=== PATIENT | male | born 1940 | race Caucasian/White ===

== ENCOUNTER → 2016-08-01 | Outpatient (REF) | payer MEDICARE, BC ==
[2016-08-01 13:43] LABS: ALBUMIN 3.9 GM/DL (3.2-5.2); ALBUMIN/GLOBULIN RATIO 1.22 (1.00-1.93); ALKALINE PHOSPHATASE 66 U/L (45-117); ALT/SGPT 33 U/L (12-78); ANION GAP 9 MEQ/L (8-16); AST/SGOT 16 U/L (15-37); BILIRUBIN,TOTAL 0.6 MG/DL (0.2-1.0); BLOOD UREA NITROGEN 15 MG/DL (7-18); CALCIUM LEVEL 8.9 MG/DL (8.8-10.2); CARBON DIOXIDE LEVEL 27 MEQ/L (21-32); CHLORIDE LEVEL 104 MEQ/L (98-107); CHOLESTEROL LEVEL 166 MG/DL (<200); GLOMERULAR FILTRATION RATE > 60.0 (>42); GLUCOSE, FASTING 149 MG/DL (83-110); POTASSIUM SERUM 4.3 MEQ/L (3.5-5.1); SODIUM LEVEL 140 MEQ/L (136-145); TOTAL PROTEIN 7.1 GM/DL (6.4-8.2); TRIGLYCERIDES LEVEL 158 MG/DL (<150)
== END ==
LOC: M SFHCPLAZ 12:37
PROVIDERS: ATTEND Nurse Practitioner Adult Health
DX: R73.01 Impaired fasting glucose (principal); E78.00 Pure hypercholesterolemia, unspecified
CPT/HCPCS: 36415; 80053; 80061; 82043; 83036; G0463

== ENCOUNTER → 2017-03-06 | Outpatient (REF) | payer MEDICARE, BC ==
[2017-03-06 12:47] LABS: MEAN CORPUSCULAR HGB CONC 34.2 g/dl (32.0-36.5); MEAN CORPUSCULAR VOLUME 93.5 fl (80.0-96.0); RED CELL DISTRIBUTION WIDTH 12.4 % (11.5-14.5); WHITE BLOOD COUNT 9.4 K/mm3 (4.0-10.0)
[2017-03-06 12:52] LABS: ALBUMIN 3.9 GM/DL (3.2-5.2); ALKALINE PHOSPHATASE 56 U/L (45-117); ALT/SGPT 29 U/L (12-78); ANION GAP 9 MEQ/L (8-16); AST/SGOT 13 U/L (15-37); BILIRUBIN,TOTAL 0.5 MG/DL (0.2-1.0); BLOOD UREA NITROGEN 20 MG/DL (7-18); CARBON DIOXIDE LEVEL 27 MEQ/L (21-32); CHLORIDE LEVEL 106 MEQ/L (98-107); CHOLESTEROL LEVEL 157 MG/DL (<200); GLOMERULAR FILTRATION RATE > 60.0 (>42); GLUCOSE, FASTING 116 MG/DL (83-110); POTASSIUM SERUM 4.6 MEQ/L (3.5-5.1); SODIUM LEVEL 142 MEQ/L (136-145); TOTAL PROTEIN 6.9 GM/DL (6.4-8.2); TRIGLYCERIDES LEVEL 138 MG/DL (<150)
== END ==
LOC: M SFHCPLAZ 08:57
PROVIDERS: ATTEND Nurse Practitioner Adult Health
DX: R73.01 Impaired fasting glucose (principal); E78.2 Mixed hyperlipidemia

== ENCOUNTER → 2017-03-28 | Outpatient (CLI) | payer MEDICARE, BC ==
[2017-03-29 14:16] LABS: PSA TOTAL 3.1 ng/mL (0.0-4.0)
== END ==
LOC: M WUC 08:03
PROVIDERS: ATTEND Urology
DX: N40.1 Benign prostatic hyperplasia with lower urinary tract symptoms (principal); R97.20 Elevated prostate specific antigen [PSA]

== ENCOUNTER → 2017-09-01 | Outpatient (REF) | payer MEDICARE, BC ==
[2017-09-01 12:19] LABS: ESTIMATED AVERAGE GLUCOSE 166 MG/DL (60-110); HEMOGLOBIN A1c 7.4 %
[2017-09-01 12:26] LABS: ALBUMIN 3.6 GM/DL (3.2-5.2); ALKALINE PHOSPHATASE 70 U/L (45-117); ALT/SGPT 18 U/L (12-78); ANION GAP 11 MEQ/L (8-16); AST/SGOT 11 U/L (7-37); BILIRUBIN,TOTAL 0.5 MG/DL (0.2-1.0); BLOOD UREA NITROGEN 19 MG/DL (7-18); CALCIUM LEVEL 9.6 MG/DL (8.8-10.2); CARBON DIOXIDE LEVEL 25 MEQ/L (21-32); CHLORIDE LEVEL 104 MEQ/L (98-107); CHOLESTEROL LEVEL 154 MG/DL (<200); CHOLESTEROL RISK RATIO 3.581 (<5); CREATININE FOR GFR 1.19 MG/DL (0.70-1.30); GLOMERULAR FILTRATION RATE > 60.0 (>42); GLUCOSE, FASTING 139 MG/DL (70-100); HDL CHOLESTEROL 43 MG/DL (>40); LDL CHOLESTEROL 74.4 MG/DL (<100); NON-HDL-C 111 MG/DL; SODIUM LEVEL 140 MEQ/L (136-145); TOTAL PROTEIN 7.2 GM/DL (6.4-8.2); TRIGLYCERIDES LEVEL 183 MG/DL (<150)
[2017-09-01 12:54] LABS: CREATININE, URINE 55.5 MG/DL; MALB URINE SIEMENS 24.8 MG/L; MAU/CREAT RATIO 44.6 MCG/MG (0.0-30.0)
== END ==
LOC: M SFHCPLAZ 08:21
DX: R73.01 Impaired fasting glucose (principal); E78.2 Mixed hyperlipidemia
CPT/HCPCS: 80053

== ENCOUNTER → 2017-11-13 | Outpatient (CLI) | payer MEDICARE, BC ==
[2017-11-13 18:04] LABS: PROSTATIC SPECIFIC AG MONITOR 2.61 NG/ML (< 4.0)
== END ==
LOC: M WUC 13:52
DX: R97.20 Elevated prostate specific antigen [PSA] (principal)
CPT/HCPCS: 84153

== ENCOUNTER → 2018-01-05 | Outpatient (CLI) | payer MEDICARE, BC ==
[~2018-01-05] MED LIST: E-Z-GAS II EFFERVESCENT PACKET (SODIUM BICARB./CITRIC ACID/SIMETHICONE) As Ordered; E-Z-HD 98% w/w 340GM SUSP BTL As Ordered; E-Z-PAQUE 96% w/w SUSP 176GM BTL As Ordered
== END ==
LOC: M RAD 07:14
DX: K22.4 Dyskinesia of esophagus (principal); J34.89 Other specified disorders of nose and nasal sinuses
CPT/HCPCS: 74241

== ENCOUNTER → 2018-02-09 | Outpatient (CLI) | payer MEDICARE, BC ==
[2018-02-09 13:07] LABS: HEMATOCRIT 44.8 % (42.0-52.0); HEMOGLOBIN 15.1 g/dl (13.5-17.5); MEAN CORPUSCULAR HEMOGLOBIN 31.3 pg (27.0-33.0); MEAN CORPUSCULAR HGB CONC 33.7 g/dl (32.0-36.5); MEAN CORPUSCULAR VOLUME 92.9 fl (80.0-96.0); PLATELET COUNT, AUTOMATED 299 10^3/uL (150-450); RED BLOOD COUNT 4.82 10^6/uL (4.30-6.10); RED CELL DISTRIBUTION WIDTH 13.2 % (11.5-14.5); WHITE BLOOD COUNT 9.4 10^3/uL (4.0-10.0)
[2018-02-09 13:11] LABS: ANION GAP 7 MEQ/L (8-16); BLOOD UREA NITROGEN 17 MG/DL (7-18); CALCIUM LEVEL 9.3 MG/DL (8.8-10.2); CARBON DIOXIDE LEVEL 28 MEQ/L (21-32); CHLORIDE LEVEL 106 MEQ/L (98-107); CREATININE FOR GFR 1.17 MG/DL (0.70-1.30); GLOMERULAR FILTRATION RATE > 60.0 (>42); GLUCOSE, FASTING 117 MG/DL (70-100); SODIUM LEVEL 141 MEQ/L (136-145)
== END ==
LOC: M WUC 09:44
DX: G47.30 Sleep apnea, unspecified (principal); I10 Essential (primary) hypertension
CPT/HCPCS: 80048

== ENCOUNTER → 2018-02-10 | Outpatient (CLI) | payer MEDICARE, BC | LOC: M RAD 08:16 | DX: J32.4 Chronic pansinusitis (principal); J34.2 Deviated nasal septum | CPT/HCPCS: 70486 ==

== ENCOUNTER → 2018-03-03 | Outpatient (CLI) | payer MEDICARE, BC ==
[2018-03-03 09:25] LABS: ESTIMATED AVERAGE GLUCOSE 143 MG/DL (60-110); HEMOGLOBIN A1c 6.6 %
[2018-03-03 09:34] LABS: ALBUMIN 3.8 GM/DL (3.2-5.2); ALBUMIN/GLOBULIN RATIO 1.12 (1.00-1.93); ALKALINE PHOSPHATASE 59 U/L (45-117); ALT/SGPT 30 U/L (12-78); ANION GAP 10 MEQ/L (8-16); AST/SGOT 16 U/L (7-37); BILIRUBIN,TOTAL 0.6 MG/DL (0.2-1.0); BLOOD UREA NITROGEN 16 MG/DL (7-18); CALCIUM LEVEL 9.6 MG/DL (8.8-10.2); CARBON DIOXIDE LEVEL 25 MEQ/L (21-32); CHLORIDE LEVEL 106 MEQ/L (98-107); CHOLESTEROL LEVEL 141 MG/DL (<200); CHOLESTEROL RISK RATIO 2.711 (<5); CREATININE FOR GFR 1.25 MG/DL (0.70-1.30); GLOMERULAR FILTRATION RATE 59.9 (>42); GLUCOSE, FASTING 134 MG/DL (70-100); HDL CHOLESTEROL 52 MG/DL (>40); LDL CHOLESTEROL 62 MG/DL (<100); NON-HDL-C 89 MG/DL; POTASSIUM SERUM 4.6 MEQ/L (3.5-5.1); SODIUM LEVEL 141 MEQ/L (136-145); TOTAL PROTEIN 7.2 GM/DL (6.4-8.2); TRIGLYCERIDES LEVEL 136 MG/DL (<150)
[2018-03-03 09:44] LABS: MALB URINE SIEMENS 63.2 MG/L
[2018-03-03 09:47] LABS: MAU/CREAT RATIO 42.4 MCG/MG (0.0-30.0)
== END ==
LOC: M WUC 08:12
DX: R73.01 Impaired fasting glucose (principal); E78.2 Mixed hyperlipidemia
CPT/HCPCS: 80053

== ENCOUNTER 2018-03-10 07:49 | Day surgery (SDC) | payer MEDICARE, BC ==
[2018-03-10] MEDS ORDERED: MIDAZOLAM INJ 2 MG/2 ML VIAL (J2250) As Ordered ×2 (08:19)
[2018-03-10] MEDS ORDERED: ROCURONIUM BROMIDE 50 MG/5 ML VIAL As Ordered ×2 (08:19)
[2018-03-10] MEDS ORDERED: fentaNYL 250 MCG/5 ML INJECTION (J3010) As Ordered ×2 (08:19)
[2018-03-10] MEDS ORDERED: PROPOFOL 200 MG/20 ML VIAL As Ordered ×2 (08:19)
[2018-03-10] MEDS ORDERED: LIDOCAINE 2% INJ 100 MG/5 ML SDV (FOR ANES.) As Ordered ×2 (08:19)
[2018-03-10] MEDS: LR 1,000 ML IV ×2 (08:25)
[2018-03-10 08:30] LABS: BEDSIDE GLUCOSE 158 MG/DL (83-110)
[2018-03-10] MEDS ORDERED: REMIFENTANIL 1MG 3ML VIAL As Ordered ×4 (09:01→09:02)
[2018-03-10] MEDS ORDERED: SUCCINYLCHOLINE 100 MG/5 ML SYRINGE (J0330) As Ordered ×2 (10:19)
[2018-03-10] MEDS ORDERED: PHENYLephrine HCL 500 MCG/5 ML (100MCG/ML) SYRINGE (J2370) As Ordered ×2 (10:39)
[2018-03-10] MEDS: OXYMETAZOLINE NASAL SPRAY (AFRIN) As Ordered ×4 (10:59→11:36)
[2018-03-10] MEDS: METHYLENE BLUE 0.5% (5MG/ML) 10 ML AMP (PROVAYBLUE)(Q9968 PER 1MG) As Ordered ×2 (10:59)
[2018-03-10] MEDS ORDERED: dexameTHASONE 4 MG/ML 1ML VIAL (J1100) As Ordered ×4 (11:06)
[2018-03-10] MEDS ORDERED: KETOROLAC 60 MG/2 ML VIAL (J1885) As Ordered ×2 (11:06)
[2018-03-10] MEDS ORDERED: NEOSTIGMINE 10 MG/10 ML VIAL (J2710) As Ordered ×2 (11:06)
[2018-03-10] MEDS ORDERED: GLYCOPYRROLATE INJ 0.2 MG/ML 2 ML VIAL As Ordered ×2 (11:06)
[2018-03-10] MEDS ORDERED: METOCLOPRAMIDE INJ 10MG/2ML VIAL (J2765) As Ordered ×2 (11:06)
[2018-03-10] MEDS ORDERED: ONDANSETRON 4MG/2ML VIAL (J2405) As Ordered ×2 (11:06)
[2018-03-10] MEDS: LIDOCAINE W/EPINEPHRINE 1% 20ML VIAL As Ordered ×2 (12:15)
[2018-03-10] MEDS: SODIUM CHLORIDE 0.9% NASAL GEL 15GM (AYR) As Ordered ×2 (12:18)
[2018-03-10] MEDS ORDERED: PERCOCET 5MG/325MG TAB PO ×2 (13:15)
[2018-03-10] MEDS ORDERED: fentaNYL 100 MCG/2 ML INJECTION (J3010) IV ×2 (13:15)
[2018-03-10] MEDS ORDERED: LR 1,000 ML IV ×2 (13:15)
[2018-03-10] MEDS ORDERED: ACETAMINOPH W/CODEINE #3 TAB UD PO ×2 (13:15)
[2018-03-10] MEDS ORDERED: ONDANSETRON 4MG/2ML VIAL (J2405) IV ×2 (13:15)
== END 2018-03-10 14:00 | disposition home or self-care (01) ==
LOC: M SDC 07:49
DX: J32.4 Chronic pansinusitis (principal); J34.3 Hypertrophy of nasal turbinates; J34.2 Deviated nasal septum; I10 Essential (primary) hypertension; E78.5 Hyperlipidemia, unspecified; E11.9 Type 2 diabetes mellitus without complications; G47.30 Sleep apnea, unspecified; E66.01 Morbid (severe) obesity due to excess calories; Z79.84 Long term (current) use of oral hypoglycemic drugs; Z79.899 Other long term (current) drug therapy; Z88.1 Allergy status to other antibiotic agents
CPT/HCPCS: 31256

== ENCOUNTER → 2018-03-30 | Outpatient (CLI) | payer MEDICARE, BC ==
[2018-03-30 13:24] LABS: BASO # 0.1 10^3/uL (0.0-0.2); BASO % 0.9 % (0.0-1.0); EOS # 0.3 10^3/uL (0.0-0.50); EOS % 4.1 % (0.0-3.0); HEMATOCRIT 42.3 % (42.0-52.0); HEMOGLOBIN 14.1 g/dl (13.5-17.5); IMMATURE GRANULOCYTE % 0.6 % (0-3.0); LYMPH # 3.1 10^3/uL (1.5-4.5); LYMPH % 38.8 % (24.0-44.0); MEAN CORPUSCULAR HEMOGLOBIN 30.8 pg (27.0-33.0); MEAN CORPUSCULAR HGB CONC 33.3 g/dl (32.0-36.5); MEAN CORPUSCULAR VOLUME 92.4 fl (80.0-96.0); MONO # 0.7 10^3/uL (0.0-0.8); MONO % 8.6 % (0.0-5.0); NEUTROPHILS # 3.8 10^3/uL (1.8-7.7); PLATELET COUNT, AUTOMATED 288 10^3/uL (150-450); RED BLOOD COUNT 4.58 10^6/uL (4.30-6.10)
[2018-03-30 13:32] LABS: ANION GAP 7 MEQ/L (8-16); BLOOD UREA NITROGEN 15 MG/DL (7-18); C REACTIVE PROTEIN QUANTITATIV < 0.30 MG/DL (0.00-0.30); CALCIUM LEVEL 8.7 MG/DL (8.8-10.2); CARBON DIOXIDE LEVEL 26 MEQ/L (21-32); CHLORIDE LEVEL 107 MEQ/L (98-107); CREATININE FOR GFR 1.18 MG/DL (0.70-1.30); GLOMERULAR FILTRATION RATE > 60.0 (>42); GLUCOSE, FASTING 190 MG/DL (70-100); POTASSIUM SERUM 4.7 MEQ/L (3.5-5.1); SODIUM LEVEL 140 MEQ/L (136-145)
[2018-03-30 13:48] LABS: ERYTHROCYTE SEDIMENTATION RATE 12 mm/hr (0-20)
== END ==
LOC: M WUC 08:41
DX: J32.0 Chronic maxillary sinusitis (principal)
CPT/HCPCS: 80048

== ENCOUNTER → 2018-05-18 | Outpatient (REF) | payer MEDICARE, BC | LOC: M LAB REF 11:38 | DX: J32.4 Chronic pansinusitis (principal) | CPT/HCPCS: 87186; 87205 ==

== ENCOUNTER → 2018-09-07 | Outpatient (CLI) | payer MEDICARE, BC ==
[~2018-09-07] MED LIST changes: +AMLO10TA5 PO; -E-Z-GAS II EFFERVESCENT PACKET (SODIUM BICARB./CITRIC ACID/SIMETHICONE) As Ordered; -E-Z-HD 98% w/w 340GM SUSP BTL As Ordered; -E-Z-PAQUE 96% w/w SUSP 176GM BTL As Ordered; +FINA5TAB2 PO; +FLOM0.4C39 PO; +FLON1SPR; +JANU100T PO; +LOSA100T50 PO; +METF500T13 PO; +MYRB25TA PO; +RANI150T PO; +SIMV10TA2 PO; +ZYRT10CA5 PO
[2018-09-07 14:47] LABS: ALBUMIN 3.9 GM/DL (3.2-5.2); ALT/SGPT 37 U/L (12-78); BILIRUBIN,TOTAL 0.5 MG/DL (0.2-1.0); BLOOD UREA NITROGEN 14 MG/DL (7-18); CARBON DIOXIDE LEVEL 29 MEQ/L (21-32); CHLORIDE LEVEL 106 MEQ/L (98-107); CHOLESTEROL LEVEL 146 MG/DL (<200); CHOLESTEROL RISK RATIO 3.395 (<5); GLOMERULAR FILTRATION RATE > 60.0 (>42); GLUCOSE, FASTING 142 MG/DL (70-100); HDL CHOLESTEROL 43 MG/DL (>40); LDL CHOLESTEROL 69 MG/DL (<100); NON-HDL-C 103 MG/DL; POTASSIUM SERUM 4.5 MEQ/L (3.5-5.1); SODIUM LEVEL 139 MEQ/L (136-145); TRIGLYCERIDES LEVEL 172 MG/DL (<150)
[2018-09-07 15:13] LABS: CREATININE, URINE 92.1 MG/DL; MALB URINE SIEMENS 40.4 MG/L; MAU/CREAT RATIO 43.8 MCG/MG (0.0-30.0)
[2018-09-07 15:21] LABS: HEMOGLOBIN A1c 7.4 %
== END ==
LOC: M WUC 11:41
PROVIDERS: ATTEND Nurse Practitioner Adult Health
DX: E11.9 Type 2 diabetes mellitus without complications (principal)

== ENCOUNTER → 2018-11-13 | Outpatient (CLI) | payer MEDICARE, BC | LOC: M WUC 14:29 | PROVIDERS: ATTEND Urology | DX: R97.20 Elevated prostate specific antigen [PSA] (principal) ==

== ENCOUNTER → 2019-04-29 | Outpatient (REF) | payer MEDICARE, BC ==
[2019-04-29 17:29] LABS: ALBUMIN 3.9 GM/DL (3.2-5.2); BILIRUBIN,TOTAL 0.8 MG/DL (0.2-1.0); CALCIUM LEVEL 9.5 MG/DL (8.8-10.2); CHOLESTEROL RISK RATIO 2.647 (<5); CREATININE FOR GFR 1.29 MG/DL (0.70-1.30); GLOMERULAR FILTRATION RATE 57.6 (>42); POTASSIUM SERUM 4.4 MEQ/L (3.5-5.1); THYROID STIMULATING HORMONE 1.16 uIU/ML (0.358-3.740)
[2019-04-29 17:33] LABS: HEMOGLOBIN A1c 8.9 %
[2019-04-29 17:41] LABS: MALB URINE SIEMENS 77.5 MG/L; MAU/CREAT RATIO 52.3 MCG/MG (0.0-30.0)
== END ==
LOC: M SFHCPLAZ 08:47
PROVIDERS: ATTEND Nurse Practitioner Adult Health
DX: E11.9 Type 2 diabetes mellitus without complications (principal); E78.2 Mixed hyperlipidemia
CPT/HCPCS: 80053; 80061; 82043; 83036; 84443; G0463

== ENCOUNTER → 2019-11-25 | Outpatient (CLI) | payer MEDICARE, BC ==
[~2019-11-25] MED LIST changes: -SIMV10TA2 PO; +SIMV10TA21 PO
== END ==
LOC: M WUC 08:05
PROVIDERS: ATTEND Nurse Practitioner
DX: R97.20 Elevated prostate specific antigen [PSA] (principal)

== ENCOUNTER → 2019-11-26 | Outpatient (CLI) | payer MEDICARE, BC ==
[2019-11-29 21:07] LABS: PSA TOTAL 1.3 ng/mL (0.0-4.0)
== END ==
LOC: M WUC 07:58
PROVIDERS: ATTEND Nurse Practitioner
DX: R97.20 Elevated prostate specific antigen [PSA] (principal)

== ENCOUNTER → 2020-01-28 | Outpatient (REF) | payer MEDICARE, BC ==
[~2020-01-28] MED LIST changes: -AMLO10TA5 PO; +AMLO1TAB25 PO
[2020-03-26 23:15] LABS: ALBUMIN 3.9 GM/DL (3.2-5.2); BILIRUBIN,TOTAL 0.6 MG/DL (0.2-1.0); CALCIUM LEVEL 9.8 MG/DL (8.8-10.2); CHOLESTEROL RISK RATIO 3.489 (<5); CREATININE FOR GFR 1.39 MG/DL (0.70-1.30); GLOMERULAR FILTRATION RATE 52.7 (>42); HEMOGLOBIN A1c 10.1 %; MALB URINE SIEMENS 70.4 MG/L; TOTAL PROTEIN 7.1 GM/DL (6.4-8.2)
== END ==
LOC: M SFHCPLAZ 12:12
PROVIDERS: ATTEND Nurse Practitioner Adult Health
DX: I10 Essential (primary) hypertension (principal); E11.9 Type 2 diabetes mellitus without complications; E78.2 Mixed hyperlipidemia
CPT/HCPCS: 36415; 80053; 80061; 82043; 83036; G0463

== ENCOUNTER → 2020-07-10 | Outpatient (CLI) | payer MEDICARE, BC ==
[2020-07-10 10:24] LABS: ALBUMIN 3.9 GM/DL (3.2-5.2); BILIRUBIN,TOTAL 0.5 MG/DL (0.2-1.0); CALCIUM LEVEL 9.9 MG/DL (8.8-10.2); CHOLESTEROL RISK RATIO 3.489 (<5); CREATININE FOR GFR 1.27 MG/DL (0.70-1.30); GLOMERULAR FILTRATION RATE 58.5 (>42); POTASSIUM SERUM 4.4 MEQ/L (3.5-5.1)
[2020-07-10 10:27] LABS: HEMOGLOBIN A1c 10.7 %
[2020-07-10 10:49] LABS: MAU/CREAT RATIO 90.7 MCG/MG (0.0-30.0)
== END ==
LOC: M WUC 08:04
PROVIDERS: ATTEND Nurse Practitioner Adult Health
DX: E78.2 Mixed hyperlipidemia (principal); E11.9 Type 2 diabetes mellitus without complications; I10 Essential (primary) hypertension

== ENCOUNTER → 2020-09-07 | Outpatient (REF) | payer MEDICARE, BC ==
[2020-09-07 14:16] LABS: BASO # 0.1 10^3/uL (0.0-0.2); BASO % 0.6 % (0.0-1.0); EOS # 4.8 10^3/uL (0.0-0.5); HEMATOCRIT 50.5 % (42.0-52.0); LYMPH # 6.2 10^3/uL (1.5-5.0); LYMPH % 29.5 % (24.0-44.0); MEAN CORPUSCULAR HEMOGLOBIN 31.1 pg (27.0-33.0); MEAN CORPUSCULAR HGB CONC 33.7 g/dl (32.0-36.5); MEAN CORPUSCULAR VOLUME 92.5 fl (80.0-96.0); MONO # 1.2 10^3/uL (0.0-0.8); MONO % 5.6 % (2.0-8.0); NEUTROPHILS # 8.5 10^3/uL (1.5-8.5); NEUTROPHILS % 40.7 % (36.0-66.0); PLATELET COUNT, AUTOMATED 311 10^3/uL (150-450); RED BLOOD COUNT 5.46 10^6/uL (4.30-6.10)
[2020-09-07 14:30] LABS: EOS % 22.9 % (0.0-3.0); WHITE BLOOD COUNT 20.9 10^3/uL (4.0-10.0)
[2020-09-07 14:35] LABS: ALBUMIN 3.7 GM/DL (3.2-5.2); BILIRUBIN,TOTAL 0.4 MG/DL (0.2-1.0); CALCIUM LEVEL 9.2 MG/DL (8.8-10.2); CREATININE FOR GFR 1.28 MG/DL (0.70-1.30); POTASSIUM SERUM 4.5 MEQ/L (3.5-5.1); TOTAL PROTEIN 6.9 GM/DL (6.4-8.2)
== END ==
LOC: M SFHCPLAZ 11:14
PROVIDERS: ATTEND Physician Assistant
DX: R19.7 Diarrhea, unspecified (principal); D72.829 Elevated white blood cell count, unspecified
CPT/HCPCS: 36415; 80053; 81002; 85025; 87505; G0463

== ENCOUNTER → 2020-09-11 | Outpatient (CLI) | payer MEDICARE, BC ==
[~2020-09-11] MED LIST changes: +GASTROGRAFIN SOLUTION 30ML (Q9963) As Ordered ONE; +ISOVUE-370 76% 100ML VIAL As Ordered ONE
--- NOTE | 2020-09-11 14:57 | REP ---
INDICATION: GENERALIZED ABD PAIN/DIARRHEA, UNSPECIFIED TYPE. COMPARISON: None TECHNIQUE: Axial contrast-enhanced images from the lung bases to the pubic symphysis using 100 cc Isovue 370 intravenous contrast material. Coronal and sagittal reformations obtained. This CT examination was performed using the following dose reduction techniques: Automated exposure control, adjustment of mA and/or kv according to the patient's size, and the use of iterative reconstruction technique. FINDINGS: Liver, spleen, pancreas, gallbladder, bilateral adrenal glands and kidneys are normal. Incidental subcentimeter left renal hypodensity likely represents small cyst. The enteric system including stomach, small, and large bowel appears normal. No evidence for obstruction or acute inflammatory process. Normal terminal ileum and appendix are identified in the right lower quadrant. Few scattered sigmoid diverticula noted without acute diverticulitis. Pelvis demonstrates prostatomegaly with mass effect on the base of the bladder. No ascites. No free air. No intraperitoneal or retroperitoneal adenopathy. Abdominal aorta and vasculature appear normal. Musculoskeletal structures demonstrate degenerative changes without acute osseous abnormality.. IMPRESSION: No acute abdominopelvic pathology appreciated. As above. <Electronically signed by Francois Reno > 09/11/20 [id number]
== END ==
LOC: M RAD 12:24
PROVIDERS: ATTEND Physician Assistant
DX: R10.84 Generalized abdominal pain (principal)
CPT/HCPCS: 74177; Q9963; Q9967

== ENCOUNTER → 2020-09-12 | Outpatient (REF) | payer MEDICARE, BC ==
[~2020-09-12] MED LIST changes: -GASTROGRAFIN SOLUTION 30ML (Q9963) As Ordered ONE; -ISOVUE-370 76% 100ML VIAL As Ordered ONE
[2020-09-12 10:06] LABS: BASO # 0.1 10^3/uL (0.0-0.2); BASO % 0.7 % (0.0-1.0); EOS # 1.9 10^3/uL (0.0-0.5); EOS % 15.1 % (0.0-3.0); HEMATOCRIT 46.8 % (42.0-52.0); HEMOGLOBIN 15.6 g/dl (13.5-17.5); LYMPH # 4.2 10^3/uL (1.5-5.0); LYMPH % 33.8 % (24.0-44.0); MEAN CORPUSCULAR HEMOGLOBIN 30.7 pg (27.0-33.0); MEAN CORPUSCULAR HGB CONC 33.3 g/dl (32.0-36.5); MEAN CORPUSCULAR VOLUME 92.1 fl (80.0-96.0); MONO # 0.9 10^3/uL (0.0-0.8); NEUTROPHILS # 5.3 10^3/uL (1.5-8.5); NEUTROPHILS % 42.8 % (36.0-66.0); PLATELET COUNT, AUTOMATED 283 10^3/uL (150-450); RED BLOOD COUNT 5.08 10^6/uL (4.30-6.10); WHITE BLOOD COUNT 12.4 10^3/uL (4.0-10.0)
[2020-09-12 10:31] LABS: ERYTHROCYTE SEDIMENTATION RATE 9 mm/hr (0-20)
[2020-09-12 10:33] LABS: ALBUMIN 3.6 GM/DL (3.2-5.2); ALT/SGPT 26 U/L (12-78); BILIRUBIN,TOTAL 0.5 MG/DL (0.2-1.0); BLOOD UREA NITROGEN 15 MG/DL (7-18); CARBON DIOXIDE LEVEL 28 MEQ/L (21-32); CHLORIDE LEVEL 108 MEQ/L (98-107); CREATININE FOR GFR 1.13 MG/DL (0.70-1.30); GLOMERULAR FILTRATION RATE > 60.0 (>42); GLUCOSE, FASTING 142 MG/DL (70-100); LIPASE 119 U/L (73-393); POTASSIUM SERUM 4.8 MEQ/L (3.5-5.1); SODIUM LEVEL 140 MEQ/L (136-145); TOTAL PROTEIN 6.6 GM/DL (6.4-8.2)
[2020-09-13 09:55] LABS: HEMOGLOBIN A1c 7.3 %
== END ==
LOC: M SFHCPLAZ 08:40
PROVIDERS: ATTEND Physician Assistant
DX: R10.84 Generalized abdominal pain (principal)

== ENCOUNTER → 2020-10-24 | Outpatient (CLI) | payer MEDICARE, BC ==
[2020-10-24 11:15] LABS: ALBUMIN 3.8 GM/DL (3.2-5.2); ALT/SGPT 25 U/L (12-78); BILIRUBIN,TOTAL 0.6 MG/DL (0.2-1.0); BLOOD UREA NITROGEN 16 MG/DL (7-18); CALCIUM LEVEL 9.6 MG/DL (8.8-10.2); CARBON DIOXIDE LEVEL 28 MEQ/L (21-32); CHLORIDE LEVEL 107 MEQ/L (98-107); CHOLESTEROL LEVEL 138 MG/DL (<200); CHOLESTEROL RISK RATIO 2.705 (<5); CREATININE FOR GFR 0.99 MG/DL (0.70-1.30); GLOMERULAR FILTRATION RATE > 60.0 (>42); GLUCOSE, FASTING 122 MG/DL (70-100); HDL CHOLESTEROL 51 MG/DL (>40); LDL CHOLESTEROL 71 MG/DL (<100); NON-HDL-C 87 MG/DL; POTASSIUM SERUM 4.8 MEQ/L (3.5-5.1); SODIUM LEVEL 139 MEQ/L (136-145); TOTAL PROTEIN 6.7 GM/DL (6.4-8.2); TRIGLYCERIDES LEVEL 80 MG/DL (<150)
[2020-10-24 11:21] LABS: CREATININE, URINE 76.9 MG/DL; MALB URINE SIEMENS 37.4 MG/L; MAU/CREAT RATIO 48.6 MCG/MG (0.0-30.0)
[2020-10-24 12:45] LABS: HEMOGLOBIN A1c 6.6 %
== END ==
LOC: M WUC 08:28
PROVIDERS: ATTEND Nurse Practitioner Adult Health
DX: E78.2 Mixed hyperlipidemia (principal); E11.9 Type 2 diabetes mellitus without complications

== ENCOUNTER → 2020-11-01 | Outpatient (CLI) | payer MEDICARE, BC | LOC: M LABSMTC 09:54 | PROVIDERS: ATTEND Anesthesiology | DX: Z01.812 Encounter for preprocedural laboratory examination (principal) ==

== ENCOUNTER 2020-11-06 07:00 | Day surgery (SDC) | payer MEDICARE, BC ==
[~2020-11-06] VITALS: Ht 172.7 cm; Wt 114.5 kg
[~2020-11-06 07:00] MED LIST changes: +CEFUROXIME 1MG/0.1ML INTRACAMERAL INJ As Ordered ONE; +DUOVISC (0.50ML VISCOAT/0.55ML PROVISC) OPHTH KIT As Ordered ONE; +PHENYLEPHRINE 2.5% OPHTH SOL 2ML OD ONE; +POVIDONE-IODINE 5% OPHTH PREP SOL 30ML As Ordered ONE; +PROPARACAINE 0.5% OPHTH SOL 15ML OD ONE; +TROPICAMIDE 1% OPHTH SOLN 2ML OD ONE
[2020-11-06] MEDS ORDERED: MIDAZOLAM INJ 2MG/2ML VIAL (J2250 PER 1MG) As Ordered ONE (07:10)
[2020-11-06] MEDS ORDERED: fentaNYL 100 MCG/2 ML INJECTION (J3010) As Ordered ONE (07:10)
[2020-11-06] MEDS ORDERED: BSS IRR 500ML/OMIDRIA 4ML IRR BAG (OR ONLY) As Ordered ONE (08:31)
[2020-11-06 09:30] VITALS: BP 157/77
--- NOTE | 2020-11-07 07:56 | RO ---
OPERATIVE NOTE DATE OF OPERATION: 11/06/2020 PREOPERATIVE DIAGNOSIS: 1. Visually significant nuclear sclerotic cataract, right eye. POSTOPERATIVE DIAGNOSIS: 1. Visually significant nuclear sclerotic cataract, right eye. PROCEDURE: 1. Cataract extraction with use of phacoemulsification, and placement of intraocular lens, AU00T0, 19.0 D, right eye. SURGEON: Jovanny Norton DO ANESTHESIA: Local (Omidria with MAC) COMPLICATIONS: None POSTOPERATIVE CONDITION: Stable INDICATIONS FOR SURGERY: 1. Blurred vision affecting patient's activities of daily living. DESCRIPTION OF PROCEDURE: The patient was seen in the preoperative area and properly identified. The correct operative eye was identified and marked. The patient received topical anesthetic, antibiotics, and topical dilating drops. The patient was then transferred to the operating room. The correct side was re-identified and a time-out was performed. The eye was prepped and draped in a sterile fashion. The eyelids were isolated with Tegaderm tape and the lids were held open with an adjustable speculum. A 1.0mm paracentesis incision was made. Omidria was then injected into the anterior chamber. Viscoelastic was then injected into the anterior chamber through the paracentesis. Using a 2.4mm sharp-tipped keratome, the anterior chamber was entered via a temporal clear cornea incision. A continuous curvilinear capsulorrhexis was created with Utrata forceps. Hydrodissection was performed with BSS on a blunt cannula until the nucleus was able to rotate freely. The crystalline lens was phacoemulsified and aspirated. Irrigation/aspiration was used to remove the cortical material Cohesive viscoelastic was placed into the capsular bag to deepen it. The implant was placed into the capsular bag and allowed to unfold. Placement was confirmed by visualizing the anterior capsulorrhexis. Irrigation/aspiration was used to remove the viscoelastic. The clear corneal incision was hydrated with BSS on a blunt cannula. The lens was well positioned. Intracameral antibiotic was injected into the anterior chamber. The incisions were then tested for leaks and found to be negative. The eye was then palpated for appropriate pressure and adjusted accordingly with BSS. The eyelid speculum was then carefully removed. A shield was placed over the eye. The patient tolerated the procedure well and was discharge to the recovery unit in a stable condition.
== END 2020-11-06 09:35 | disposition home or self-care (01) ==
LOC: M SDC 07:00
PROVIDERS: ATTEND Ophthalmology
DX: H25.11 Age-related nuclear cataract, right eye (principal); I10 Essential (primary) hypertension; E78.5 Hyperlipidemia, unspecified; G47.33 Obstructive sleep apnea (adult) (pediatric); R73.09 Other abnormal glucose; Z79.84 Long term (current) use of oral hypoglycemic drugs; Z79.899 Other long term (current) drug therapy; Z88.1 Allergy status to other antibiotic agents
CPT/HCPCS: 66984; J1097; J2250; J3010; V2632

== ENCOUNTER → 2021-04-19 | Outpatient (CLI) | payer MEDICARE, BC ==
[~2021-04-19] MED LIST changes: -CEFUROXIME 1MG/0.1ML INTRACAMERAL INJ As Ordered ONE; -DUOVISC (0.50ML VISCOAT/0.55ML PROVISC) OPHTH KIT As Ordered ONE; -PHENYLEPHRINE 2.5% OPHTH SOL 2ML OD ONE; -POVIDONE-IODINE 5% OPHTH PREP SOL 30ML As Ordered ONE; -PROPARACAINE 0.5% OPHTH SOL 15ML OD ONE; -TROPICAMIDE 1% OPHTH SOLN 2ML OD ONE
[2021-04-19 10:45] LABS: HEMOGLOBIN A1c 6.4 %
[2021-04-19 10:51] LABS: ALBUMIN 3.7 GM/DL (3.2-5.2); ALT/SGPT 27 U/L (12-78); BILIRUBIN,TOTAL 0.6 MG/DL (0.2-1.0); BLOOD UREA NITROGEN 18 MG/DL (7-18); CALCIUM LEVEL 9.3 MG/DL (8.8-10.2); CARBON DIOXIDE LEVEL 28 MEQ/L (21-32); CHLORIDE LEVEL 105 MEQ/L (98-107); CHOLESTEROL LEVEL 186 MG/DL (<200); CHOLESTEROL RISK RATIO 4.133 (<5); CREATININE FOR GFR 1.18 MG/DL (0.70-1.30); GLOMERULAR FILTRATION RATE > 60.0 (>42); GLUCOSE, FASTING 137 MG/DL (70-100); HDL CHOLESTEROL 45 MG/DL (>40); LDL CHOLESTEROL 100 MG/DL (<100); NON-HDL-C 141 MG/DL; POTASSIUM SERUM 4.5 MEQ/L (3.5-5.1); SODIUM LEVEL 138 MEQ/L (136-145); TOTAL PROTEIN 7.1 GM/DL (6.4-8.2); TRIGLYCERIDES LEVEL 203 MG/DL (<150)
[2021-04-19 11:54] LABS: MAU/CREAT RATIO 35.9 MCG/MG (0.0-30.0)
== END ==
LOC: M PLALAB 09:00
PROVIDERS: ATTEND Nurse Practitioner Adult Health
DX: E78.5 Hyperlipidemia, unspecified (principal); E11.9 Type 2 diabetes mellitus without complications

== ENCOUNTER → 2021-04-23 | Outpatient (CLI) | payer MEDICARE, BC | LOC: M WUC 08:42 | PROVIDERS: ATTEND Nurse Practitioner | DX: R35.1 Nocturia (principal) ==

== ENCOUNTER → 2021-08-28 | Outpatient (CLI) | payer MEDICARE, BC ==
[~2021-08-28] MED LIST changes: +LOSA100T45 PO; -LOSA100T50 PO
[2021-08-28 11:41] LABS: MAU/CREAT RATIO 78.1 MCG/MG (0.0-30.0)
[2021-08-28 11:44] LABS: ALBUMIN 4.2 GM/DL (3.2-5.2); BILIRUBIN,TOTAL 0.7 MG/DL (0.2-1.0); CALCIUM LEVEL 10.1 MG/DL (8.8-10.2); CHOLESTEROL RISK RATIO 3.782 (<5); CREATININE FOR GFR 1.29 MG/DL (0.70-1.30); GLOMERULAR FILTRATION RATE 57.3 (>42); POTASSIUM SERUM 4.7 MEQ/L (3.5-5.1); THYROID STIMULATING HORMONE 2.4 uIU/ML (0.358-3.740); TOTAL PROTEIN 7.1 GM/DL (6.4-8.2)
[2021-08-28 12:10] LABS: HEMOGLOBIN A1c 7.2 %
== END ==
LOC: M LAB 08:20 → M PLALAB 08:20
PROVIDERS: ATTEND Nurse Practitioner Adult Health
DX: E11.9 Type 2 diabetes mellitus without complications (principal); E78.2 Mixed hyperlipidemia; Z13.29 Encounter for screening for other suspected endocrine disorder

== ENCOUNTER → 2022-03-04 | Outpatient (CLI) | payer MEDICARE, BC ==
[2022-03-04 11:09] LABS: ALT/SGPT 32 U/L (12-78); BILIRUBIN,TOTAL 0.6 MG/DL (0.2-1.0); BLOOD UREA NITROGEN 14 MG/DL (7-18); CALCIUM LEVEL 9.5 MG/DL (8.8-10.2); CARBON DIOXIDE LEVEL 25 MEQ/L (21-32); CHLORIDE LEVEL 105 MEQ/L (98-107); GLOMERULAR FILTRATION RATE > 60.0 (>42); GLUCOSE, FASTING 154 MG/DL (70-100); POTASSIUM SERUM 4.5 MEQ/L (3.5-5.1); SODIUM LEVEL 138 MEQ/L (136-145)
[2022-03-04 11:10] LABS: CHOLESTEROL LEVEL 157 MG/DL (<200); CHOLESTEROL RISK RATIO 3.078 (<5); CREATININE, URINE 57.5 MG/DL; HDL CHOLESTEROL 51 MG/DL (>40); LDL CHOLESTEROL 73 MG/DL (<100); MAU/CREAT RATIO 255.6 MCG/MG (0.0-30.0); NON-HDL-C 106 MG/DL; TRIGLYCERIDES LEVEL 165 MG/DL (<150)
== END ==
LOC: M WUC 08:15
PROVIDERS: ATTEND Nurse Practitioner Adult Health
DX: E11.9 Type 2 diabetes mellitus without complications (principal); E78.2 Mixed hyperlipidemia

== ENCOUNTER → 2022-03-12 | Outpatient (CLI) | payer MEDICARE, BC ==
[2022-03-12 11:48] LABS: HEMOGLOBIN A1c 7.1 %
== END ==
LOC: M PLALAB 08:14
PROVIDERS: ATTEND Nurse Practitioner Adult Health
DX: E11.9 Type 2 diabetes mellitus without complications (principal)

== ENCOUNTER → 2022-05-07 | Outpatient (REF) | payer MEDICARE, BC | LOC: M WUC 09:39 | PROVIDERS: ATTEND Nurse Practitioner | DX: N40.1 Benign prostatic hyperplasia with lower urinary tract symptoms (principal) ==

== ENCOUNTER → 2022-09-03 | Outpatient (CLI) | payer MEDICARE, BC ==
[2022-09-03 12:55] LABS: HEMATOCRIT 50.3 % (42.0-52.0); HEMOGLOBIN 16.8 g/dl (13.5-17.5); MEAN CORPUSCULAR HEMOGLOBIN 30.6 pg (27.0-33.0); MEAN CORPUSCULAR HGB CONC 33.4 g/dl (32.0-36.5); MEAN CORPUSCULAR VOLUME 91.6 fl (80.0-96.0); PLATELET COUNT, AUTOMATED 289 10^3/uL (150-450); RED BLOOD COUNT 5.49 10^6/uL (4.30-6.10); WHITE BLOOD COUNT 11.1 10^3/uL (4.0-10.0)
[2022-09-03 12:57] LABS: ALBUMIN 3.9 G/DL (3.2-5.2); ALKALINE PHOSPHATASE 97 U/L (46-116); ALT/SGPT 20 U/L (7.0-40); AST/SGOT 12 U/L (<34); BILIRUBIN,TOTAL 0.6 MG/DL (0.3-1.2); BLOOD UREA NITROGEN 17 MG/DL (9-23); CALCIUM LEVEL 9.5 MG/DL (8.3-10.6); CARBON DIOXIDE LEVEL 30 MMOL/L (20-31); CHLORIDE LEVEL 100 MMOL/L (98-107); CHOLESTEROL LEVEL 192 MG/DL (<200); CHOLESTEROL RISK RATIO 4.29 (<5); GLOMERULAR FILTRATION RATE > 60.0 (>42); GLUCOSE, FASTING 350 MG/DL (74-106); HDL CHOLESTEROL 44.7 MG/DL (>40); LDL CHOLESTEROL 107.9 MG/DL (<100); NON-HDL-C 147.3 MG/DL; POTASSIUM SERUM 4.5 MMOL/L (3.5-5.1); SODIUM LEVEL 134 MMOL/L (136-145); TOTAL PROTEIN 6.9 G/DL (5.7-8.2); TRIGLYCERIDES LEVEL 197 MG/DL (<150)
[2022-09-03 13:11] LABS: HEMOGLOBIN A1c 12.7 % (4.0-6.0)
[2022-09-03 13:22] LABS: CREATININE, URINE 72.5 MG/DL; MAU/CREAT RATIO 77.2 MCG/MG (0.0-30.0)
== END ==
LOC: M WUC 09:28
PROVIDERS: ATTEND Nurse Practitioner Adult Health
DX: G47.30 Sleep apnea, unspecified (principal); E11.9 Type 2 diabetes mellitus without complications; E78.2 Mixed hyperlipidemia

== ENCOUNTER → 2022-10-14 | Outpatient (CLI) | payer MEDICARE, BC ==
[~2022-10-14] MED LIST changes: -LOSA100T45 PO; +LOSA100T46 PO
[2022-10-14 12:54] LABS: ALBUMIN 3.4 G/DL (3.2-5.2); ALKALINE PHOSPHATASE 64 U/L (46-116); ALT/SGPT 26 U/L (7.0-40); AST/SGOT 16 U/L (<34); BILIRUBIN,TOTAL 0.6 MG/DL (0.3-1.2); BLOOD UREA NITROGEN 13 MG/DL (9-23); CALCIUM LEVEL 9.2 MG/DL (8.3-10.6); CARBON DIOXIDE LEVEL 32 MMOL/L (20-31); CHLORIDE LEVEL 103 MMOL/L (98-107); CREATININE FOR GFR 1.02 MG/DL (0.70-1.30); GLOMERULAR FILTRATION RATE > 60.0 (>42); GLUCOSE, FASTING 200 MG/DL (74-106); POTASSIUM SERUM 5.1 MMOL/L (3.5-5.1); SODIUM LEVEL 138 MMOL/L (136-145); TOTAL PROTEIN 6.2 G/DL (5.7-8.2)
[2022-10-14 12:58] LABS: HEMOGLOBIN A1c 10.6 % (4.0-6.0)
== END ==
LOC: M WUC 09:38
PROVIDERS: ATTEND Nurse Practitioner Adult Health
DX: E11.9 Type 2 diabetes mellitus without complications (principal)

== ENCOUNTER → 2022-12-09 | Outpatient (CLI) | payer MEDICARE, BC ==
[2022-12-09 13:48] LABS: ALBUMIN 4.3 G/DL (3.2-5.2); ALKALINE PHOSPHATASE 67 U/L (46-116); ALT/SGPT 24 U/L (7.0-40); AST/SGOT 13 U/L (<34); BILIRUBIN,TOTAL 0.8 MG/DL (0.3-1.2); BLOOD UREA NITROGEN 17 MG/DL (9-23); CALCIUM LEVEL 9.9 MG/DL (8.3-10.6); CARBON DIOXIDE LEVEL 26 MMOL/L (20-31); CHLORIDE LEVEL 104 MMOL/L (98-107); GLOMERULAR FILTRATION RATE > 60.0 (>35); GLUCOSE, FASTING 140 MG/DL (74-106); POTASSIUM SERUM 4.6 MMOL/L (3.5-5.1); SODIUM LEVEL 136 MMOL/L (136-145); TOTAL PROTEIN 7.1 G/DL (5.7-8.2)
== END ==
LOC: M WUC 09:10
PROVIDERS: ATTEND Nurse Practitioner Adult Health
DX: E11.9 Type 2 diabetes mellitus without complications (principal)

== ENCOUNTER → 2023-02-18 | Outpatient (CLI) | payer MEDICARE, BC ==
[2023-02-18 10:38] LABS: HEMOGLOBIN A1c 6.4 % (4.0-6.0)
[2023-02-18 10:46] LABS: ALBUMIN 3.9 G/DL (3.2-5.2); ALKALINE PHOSPHATASE 67 U/L (46-116); ALT/SGPT 18 U/L (7.0-40); AST/SGOT < 8 U/L (<34); BILIRUBIN,TOTAL 0.7 MG/DL (0.3-1.2); BLOOD UREA NITROGEN 17 MG/DL (9-23); CALCIUM LEVEL 9.6 MG/DL (8.3-10.6); CARBON DIOXIDE LEVEL 28 MMOL/L (20-31); CHLORIDE LEVEL 104 MMOL/L (98-107); CHOLESTEROL LEVEL 138 MG/DL (<200); CHOLESTEROL RISK RATIO 3.05 (<5); CREATININE FOR GFR 1.07 MG/DL (0.70-1.30); GLOMERULAR FILTRATION RATE > 60.0 (>35); GLUCOSE, FASTING 125 MG/DL (74-106); HDL CHOLESTEROL 45.1 MG/DL (>40); LDL CHOLESTEROL 66.3 MG/DL (<100); NON-HDL-C 92.9 MG/DL; POTASSIUM SERUM 5.2 MMOL/L (3.5-5.1); SODIUM LEVEL 141 MMOL/L (136-145); TOTAL PROTEIN 6.7 G/DL (5.7-8.2); TRIGLYCERIDES LEVEL 133 MG/DL (<150)
== END ==
LOC: M WUC 07:59
PROVIDERS: ATTEND Nurse Practitioner Adult Health
DX: E11.9 Type 2 diabetes mellitus without complications (principal)

== ENCOUNTER 2023-05-05 12:10 | Day surgery (SDC) | payer MEDICARE, BC ==
[~2023-05-05] VITALS: Ht 172.7 cm; Wt 112.9 kg
[~2023-05-05 12:10] MED LIST changes: +ACETYLCHOLINE OPHTH SOLN 1% 2ML (MIOCHOL-E) As Ordered ONE; +CEFUROXIME 1MG/0.1ML INTRACAMERAL INJ As Ordered ONE; +CYCLOPENTOLATE 1% OPHTH SOLN 2ML BTL OS SCH; +FLURBIPROFEN 0.03% OPHTH SOLN 2.5 ML OS SCH; +LIDOCAINE 1% SDV 5ML VIAL As Ordered ONE; +LR 1,000 ML IV SCH; +PHENYLEPHRINE 2.5% OPHTH SOL 2ML OS SCH; +TETRACAINE 0.5% OPHTH SOLN 4ML OS SCH; +TRUL0.5I SC
[2023-05-05] MEDS ORDERED: MIDAZOLAM INJ 2MG/2ML VIAL As Ordered ONE (15:34)
[2023-05-05 16:06] VITALS: BP 162/79; TEMP 97.6; O2SAT 98
== END 2023-05-05 16:28 | disposition home or self-care (01) ==
LOC: M SDC 12:10
PROVIDERS: ATTEND Ophthalmology
DX: E11.36 Type 2 diabetes mellitus with diabetic cataract (principal); H25.12 Age-related nuclear cataract, left eye; I10 Essential (primary) hypertension; E78.00 Pure hypercholesterolemia, unspecified; G47.30 Sleep apnea, unspecified; Z79.899 Other long term (current) drug therapy; Z79.84 Long term (current) use of oral hypoglycemic drugs
CPT/HCPCS: 66984; J0697; J2250; V2632

== ENCOUNTER → 2023-06-06 | Outpatient (CLI) | payer MEDICARE, BC ==
[~2023-06-06] MED LIST changes: -ACETYLCHOLINE OPHTH SOLN 1% 2ML (MIOCHOL-E) As Ordered ONE; -CEFUROXIME 1MG/0.1ML INTRACAMERAL INJ As Ordered ONE; -CYCLOPENTOLATE 1% OPHTH SOLN 2ML BTL OS SCH; -FLURBIPROFEN 0.03% OPHTH SOLN 2.5 ML OS SCH; -LIDOCAINE 1% SDV 5ML VIAL As Ordered ONE; -LR 1,000 ML IV SCH; -PHENYLEPHRINE 2.5% OPHTH SOL 2ML OS SCH; -TETRACAINE 0.5% OPHTH SOLN 4ML OS SCH
[2023-06-06 13:16] LABS: ALKALINE PHOSPHATASE 110 U/L (46-116); ALT/SGPT 83 U/L (7.0-40); AST/SGOT 25 U/L (<34); BILIRUBIN,TOTAL 0.6 MG/DL (0.3-1.2); BLOOD UREA NITROGEN 17 MG/DL (9-23); CALCIUM LEVEL 10.4 MG/DL (8.3-10.6); CARBON DIOXIDE LEVEL 28 MMOL/L (20-31); CHLORIDE LEVEL 104 MMOL/L (98-107); CHOLESTEROL LEVEL 174 MG/DL (<200); CHOLESTEROL RISK RATIO 4.24 (<5); CREATININE FOR GFR 1.07 MG/DL (0.70-1.30); GLOMERULAR FILTRATION RATE > 60.0 (>35); GLUCOSE, FASTING 145 MG/DL (74-106); LDL CHOLESTEROL 101.6 MG/DL (<100); SODIUM LEVEL 140 MMOL/L (136-145); TOTAL PROTEIN 7.4 G/DL (5.7-8.2); TRIGLYCERIDES LEVEL 157 MG/DL (<150)
[2023-06-06 13:45] LABS: HEMOGLOBIN A1c 6.4 % (4.0-6.0)
== END ==
LOC: M WUC 09:18
PROVIDERS: ATTEND Nurse Practitioner Adult Health
DX: E78.2 Mixed hyperlipidemia (principal); E11.9 Type 2 diabetes mellitus without complications

== ENCOUNTER → 2023-06-23 | Outpatient (REF) | payer MEDICARE, BC | LOC: M LABWUC 11:23 | PROVIDERS: ATTEND Nurse Practitioner | DX: N40.1 Benign prostatic hyperplasia with lower urinary tract symptoms (principal) ==

== ENCOUNTER → 2023-09-17 | Outpatient (REF) | payer MEDICARE ==
[2023-09-17 13:06] LABS: HEMOGLOBIN A1c 7.2 % (4.0-6.0)
[2023-09-17 13:18] LABS: ALBUMIN 3.5 G/DL (3.2-5.2); ALKALINE PHOSPHATASE 123 U/L (46-116); ALT/SGPT 143 U/L (7.0-40); AST/SGOT 50 U/L (<34); BILIRUBIN,TOTAL 1.5 MG/DL (0.3-1.2); BLOOD UREA NITROGEN 15 MG/DL (9-23); CALCIUM LEVEL 9.4 MG/DL (8.3-10.6); CARBON DIOXIDE LEVEL 27 MMOL/L (20-31); CHLORIDE LEVEL 105 MMOL/L (98-107); CREATININE FOR GFR 1.04 MG/DL (0.70-1.30); GLOMERULAR FILTRATION RATE > 60.0 (>35); GLUCOSE, FASTING 191 MG/DL (74-106); SODIUM LEVEL 136 MMOL/L (136-145); TOTAL PROTEIN 6.6 G/DL (5.7-8.2)
== END ==
LOC: M LABWUC 10:53
PROVIDERS: ATTEND Nurse Practitioner Adult Health
DX: E11.9 Type 2 diabetes mellitus without complications (principal)

== ENCOUNTER → 2023-10-13 | Outpatient (CLI) | payer MEDICARE, BC ==
[2023-10-13 13:42] LABS: ALBUMIN 3.7 G/DL (3.2-5.2); ALKALINE PHOSPHATASE 76 U/L (46-116); ALT/SGPT 24 U/L (7.0-40); AST/SGOT 9 U/L (<34); BILIRUBIN,TOTAL 0.6 MG/DL (0.3-1.2); BLOOD UREA NITROGEN 20 MG/DL (9-23); CALCIUM LEVEL 10.1 MG/DL (8.3-10.6); CARBON DIOXIDE LEVEL 30 MMOL/L (20-31); CHLORIDE LEVEL 101 MMOL/L (98-107); CREATININE FOR GFR 1.11 MG/DL (0.70-1.30); GLOMERULAR FILTRATION RATE > 60.0 (>35); GLUCOSE, FASTING 269 MG/DL (74-106); POTASSIUM SERUM 4.9 MMOL/L (3.5-5.1); SODIUM LEVEL 136 MMOL/L (136-145); TOTAL PROTEIN 6.5 G/DL (5.7-8.2)
== END ==
LOC: M WUC 09:27
PROVIDERS: ATTEND Nurse Practitioner Adult Health
DX: R74.8 Abnormal levels of other serum enzymes (principal)

== ENCOUNTER → 2023-11-28 | Outpatient (CLI) | payer MEDICARE, BC ==
[2023-11-28 15:48] LABS: APPEARANCE, URINE CLEAR (CLEAR); BACTERIA, URINE AUTO NEGATIVE (NEGATIVE); BILIRUBIN, URINE AUTO NEGATIVE (NEGATIVE); BLOOD, URINE BLOOD NEGATIVE (NEGATIVE); COLOR, URINE STRAW (YELLOW); GLUCOSE, URINE (UA) AUTO NEGATIVE (NEGATIVE); KETONE, URINE AUTO NEGATIVE (NEGATIVE); LEUKOCYTE ESTERASE, URINE AUTO 1+ (NEGATIVE); NITRITE, URINE AUTO NEGATIVE (NEGATIVE); PROTEIN, URINE AUTO NEGATIVE (NEGATIVE); RBC, URINE AUTO 0 /HPF (0-3); SPECIFIC GRAVITY URINE AUTO 1.008 (1.002-1.035); SQUAMOUS EPITHELIAL CELL UR AU 0 /HPF (0-6); UROBILINOGEN, URINE AUTO 0.2 mg/dL (0.0-2.0); WBC, URINE AUTO 2 /HPF (0-3)
[2023-11-28 15:51] LABS: BASO # 0.1 10^3/uL (0.0-0.2); BASO % 0.6 % (0.0-1.0); EOS # 0.5 10^3/uL (0.0-0.5); EOS % 4.1 % (0.0-3.0); HEMATOCRIT 49.8 % (42.0-52.0); HEMOGLOBIN 16.3 g/dl (13.5-17.5); LYMPH # 5.1 10^3/uL (1.5-5.0); LYMPH % 39.8 % (24.0-44.0); MEAN CORPUSCULAR HEMOGLOBIN 30.7 pg (27.0-33.0); MEAN CORPUSCULAR HGB CONC 32.7 g/dl (32.0-36.5); MEAN CORPUSCULAR VOLUME 93.8 fl (80.0-96.0); MONO # 1.1 10^3/uL (0.0-0.8); MONO % 8.4 % (2.0-8.0); NEUTROPHILS # 5.9 10^3/uL (1.5-8.5); NEUTROPHILS % 46.7 % (36.0-66.0); PLATELET COUNT, AUTOMATED 346 10^3/uL (150-450); RED BLOOD COUNT 5.31 10^6/uL (4.30-6.10); WHITE BLOOD COUNT 12.7 10^3/uL (4.0-10.0)
[2023-11-28 16:12] LABS: BLOOD UREA NITROGEN 14 MG/DL (9-23); CALCIUM LEVEL 9.4 MG/DL (8.3-10.6); CARBON DIOXIDE LEVEL 30 MMOL/L (20-31); CHLORIDE LEVEL 100 MMOL/L (98-107); CREATININE FOR GFR 1.08 MG/DL (0.70-1.30); GLOMERULAR FILTRATION RATE > 60.0 (>35); GLUCOSE, FASTING 146 MG/DL (74-106); POTASSIUM SERUM 4.9 MMOL/L (3.5-5.1); SODIUM LEVEL 134 MMOL/L (136-145)
[2023-11-28 16:53] LABS: HEMOGLOBIN A1c 7.6 % (4.0-6.0)
== END ==
LOC: M PLALAB 14:15
PROVIDERS: ATTEND Family Medicine
DX: Z01.810 Encounter for preprocedural cardiovascular examination (principal); E11.9 Type 2 diabetes mellitus without complications; Z79.899 Other long term (current) drug therapy

== ENCOUNTER → 2023-12-01 | Outpatient (CLI) | payer MEDICARE, BC ==
[2023-12-01 12:03] LABS: HEMOGLOBIN A1c 7.8 % (4.0-6.0)
[2023-12-01 12:25] LABS: AMYLASE 87 U/L (30-118); LIPASE 51 U/L (12-53)
[2023-12-01 12:27] LABS: ALBUMIN 3.8 G/DL (3.2-5.2); ALKALINE PHOSPHATASE 72 U/L (46-116); ALT/SGPT 18 U/L (7.0-40); AST/SGOT < 8 U/L (<34); BILIRUBIN,TOTAL 0.6 MG/DL (0.3-1.2); BLOOD UREA NITROGEN 15 MG/DL (9-23); CALCIUM LEVEL 9.5 MG/DL (8.3-10.6); CARBON DIOXIDE LEVEL 27 MMOL/L (20-31); CHLORIDE LEVEL 106 MMOL/L (98-107); CHOLESTEROL LEVEL 157 MG/DL (<200); CHOLESTEROL RISK RATIO 3.93 (<5); CREATININE FOR GFR 1.02 MG/DL (0.70-1.30); GLOMERULAR FILTRATION RATE > 60.0 (>35); GLUCOSE, FASTING 177 MG/DL (74-106); HDL CHOLESTEROL 39.9 MG/DL (>40); LDL CHOLESTEROL 81.7 MG/DL (<100); NON-HDL-C 117.1 MG/DL; POTASSIUM SERUM 4.6 MMOL/L (3.5-5.1); SODIUM LEVEL 139 MMOL/L (136-145); TOTAL PROTEIN 6.6 G/DL (5.7-8.2); TRIGLYCERIDES LEVEL 177 MG/DL (<150)
[2023-12-01 12:41] LABS: URIC ACID 5.7 MG/DL (3.7-9.2)
== END ==
LOC: M WUC 09:35
PROVIDERS: ATTEND Nurse Practitioner Adult Health
DX: R74.8 Abnormal levels of other serum enzymes (principal); E11.9 Type 2 diabetes mellitus without complications; E78.2 Mixed hyperlipidemia

== ENCOUNTER → 2024-06-22 | Outpatient (CLI) | payer MEDICARE, BC ==
[2024-06-22 11:08] LABS: HEMATOCRIT 48.3 % (42.0-52.0); HEMOGLOBIN 16.3 g/dl (13.5-17.5); MEAN CORPUSCULAR HEMOGLOBIN 30.8 pg (27.0-33.0); MEAN CORPUSCULAR HGB CONC 33.7 g/dl (32.0-36.5); MEAN CORPUSCULAR VOLUME 91.1 fl (80.0-96.0); PLATELET COUNT, AUTOMATED 289 10^3/uL (150-450); WHITE BLOOD COUNT 11.2 10^3/uL (4.0-10.0)
[2024-06-22 11:18] LABS: HEMOGLOBIN A1c 6.9 % (4.0-6.0)
[2024-06-22 11:53] LABS: CREATININE, URINE 72.6 MG/DL
[2024-06-22 11:54] LABS: MAU/CREAT RATIO 301.6 MCG/MG (0.0-30.0)
[2024-06-22 11:59] LABS: FREE T4 1.31 NG/DL (0.89-1.76); THYROID STIMULATING HORMONE 1.953 uIU/ML (0.55-4.78)
[2024-06-22 12:02] LABS: ALBUMIN 3.9 G/DL (3.2-5.2); BILIRUBIN,TOTAL 0.6 MG/DL (0.3-1.2); CALCIUM LEVEL 9.8 MG/DL (8.3-10.6); CHOLESTEROL RISK RATIO 4.05 (<5); CREATININE FOR GFR 1.27 MG/DL (0.70-1.30); GLOMERULAR FILTRATION RATE 57.9 (>35); HDL CHOLESTEROL 40.4 MG/DL (>40); LDL CHOLESTEROL 100.6 MG/DL (<100); NON-HDL-C 123.6 MG/DL; POTASSIUM SERUM 4.6 MMOL/L (3.5-5.1); TOTAL PROTEIN 6.9 G/DL (5.7-8.2)
== END ==
LOC: M WUC 08:10
PROVIDERS: ATTEND Nurse Practitioner Adult Health
DX: E11.9 Type 2 diabetes mellitus without complications (principal)

== ENCOUNTER → 2024-12-20 | Outpatient (CLI) | payer MEDICARE, BC ==
[~2024-12-20] MED LIST changes: -FLOM0.4C39 PO; +TAMS-18 PO
[2024-12-20 11:08] LABS: PLATELET COUNT, AUTOMATED 293 10^3/uL (150-450)
[2024-12-20 11:19] LABS: ESTIMATED AVERAGE GLUCOSE 148.0 MG/DL (60-110)
[2024-12-20 11:35] LABS: ALT/SGPT 17.0 U/L (7.0-40); AST/SGOT 17.0 U/L (<34); CALCIUM LEVEL 10.5 MG/DL (8.3-10.6); CARBON DIOXIDE LEVEL 29.0 MMOL/L (20-31); CHLORIDE LEVEL 103.0 MMOL/L (98-107); CHOLESTEROL LEVEL 168.0 MG/DL (<200); CHOLESTEROL RISK RATIO 3.9 (<5); CREATININE FOR GFR 1.25 MG/DL (0.70-1.30); GLOMERULAR FILTRATION RATE 57.5 (>35); LDL CHOLESTEROL 95.2 MG/DL (<100); NON-HDL-C 125.0 MG/DL; POTASSIUM SERUM 5.4 MMOL/L (3.5-5.1); SODIUM LEVEL 142.0 MMOL/L (136-145); TRIGLYCERIDES LEVEL 149.0 MG/DL (<150)
[2024-12-20 11:36] LABS: FREE T4 1.08 NG/DL (0.89-1.76)
== END ==
LOC: M PLALAB 08:28
PROVIDERS: ATTEND Nurse Practitioner Adult Health
DX: Z13.29 Encounter for screening for other suspected endocrine disorder (principal); E11.9 Type 2 diabetes mellitus without complications; I10 Essential (primary) hypertension; E78.2 Mixed hyperlipidemia

== ENCOUNTER → 2025-06-15 | Outpatient (CLI) | payer MEDICARE, BC ==
[2025-06-15 12:21] LABS: PLATELET COUNT, AUTOMATED 270 10^3/uL (150-450)
[2025-06-15 12:42] LABS: ESTIMATED AVERAGE GLUCOSE 154.0 MG/DL (60-110)
[2025-06-15 12:47] LABS: CREATININE, URINE 83.8 MG/DL
[2025-06-15 12:48] LABS: MALB URINE SIEMENS 34.0 MG/L; MAU/CREAT RATIO 40.5 MCG/MG (0.0-30.0)
[2025-06-15 12:49] LABS: ALT/SGPT 25.0 U/L (7.0-40); AST/SGOT 12.0 U/L (<34); CALCIUM LEVEL 9.8 MG/DL (8.3-10.6); CARBON DIOXIDE LEVEL 28.0 MMOL/L (20-31); CHLORIDE LEVEL 104.0 MMOL/L (98-107); CHOLESTEROL LEVEL 177.0 MG/DL (<200); CHOLESTEROL RISK RATIO 4.09 (<5); CREATININE FOR GFR 1.22 MG/DL (0.70-1.30); GLOMERULAR FILTRATION RATE 59.2 (>35); LDL CHOLESTEROL 100.4 MG/DL (<100); NON-HDL-C 133.8 MG/DL; POTASSIUM SERUM 4.7 MMOL/L (3.5-5.1); SODIUM LEVEL 139.0 MMOL/L (136-145); TRIGLYCERIDES LEVEL 167.0 MG/DL (<150)
[2025-06-15 12:50] LABS: FREE T4 1.24 NG/DL (0.89-1.76)
== END ==
LOC: M WUC 08:28
PROVIDERS: ATTEND Nurse Practitioner Adult Health
DX: E11.9 Type 2 diabetes mellitus without complications (principal); E78.2 Mixed hyperlipidemia; Z13.29 Encounter for screening for other suspected endocrine disorder; I10 Essential (primary) hypertension